=== PATIENT | male | born 1985 | race Caucasian/White ===

== ENCOUNTER 2017-12-04 08:57 | Emergency (ER) | payer SELFPAY ==
[2017-12-04 09:03] VITALS: BP 134/90
--- NOTE | 2017-12-04 09:59 | ER Document Report ---
HPI - HPI Pain Level: 5 Notes: Patient is a 32-year-old male with a history of chronic neck pain presents to the ED complaining of acute on chronic neck pain over the last day. Patient states that he has a stiff neck and soreness associated that does not radiate. Patient denies any strenuous activity or injury recently. He denies any recent illness. Denies any drug allergies or IV drug use. Patient states that he has been evaluated by pain management in the past and has had injections to the area with known bulging disks. He has not established with anybody here. Patient does admit to smoking. Denies any headache, fever, head injury, changes in vision/speech/mentation/hearing, URI, sore throat, chest pain, palpitations, syncope, cough, shortness of breath, wheeze, dyspnea, abdominal pain, nausea/vomiting/diarrhea, urinary retention, dysuria, hematuria, loss of control of bowel or bladder, numbness/tingling, saddle anesthesia, muscle paralysis/weakness, or rash. - ROS Systems Reviewed and Negative: Yes All other systems reviewed and negative Past Medical History - Social History Smoking Status: Current Every Day Smoker Family History: Reviewed & Not Pertinent Vertical Provider Document - CONSTITUTIONAL Agree With Documented VS: Yes Notes: PHYSICAL EXAMINATION: GENERAL: Well-appearing, well-nourished and in no acute distress. Neck: FROM to passive/active. Strength 5+/5. + tenderness to the c- paraspinal mm with mild spasming and trigger points noted. Spurling negative. Kernig/brudzinski neg. N/V intact to UE's b/l. LUNGS: Breath sounds clear to auscultation bilaterally and equal. No wheezes rales or rhonchi. HEART: Regular rate and rhythm without murmurs, rubs, gallops. Musculoskeletal: Ext's b/l: FROM to passive/active. Strength 5+/5. No deficits noted. No bony tenderness of extremities. Back: FROM to passive/active. Strength 5+/5. No vertebral point tenderness, stepoffs, or deformities. No other bony tenderness, erythema, swelling, or ecchymosis. SLR negative b/l. Extremities: No cyanosis, clubbing, or edema b/l. Peripheral pulses 2+. Capillary refill less than 2 seconds. NEUROLOGICAL: Normal speech, normal gait. Normal sensory, motor exams. Reflexes 2+ b/l. Clonus negative. PSYCH: Normal mood, normal affect. SKIN: Warm, Dry, normal turgor, no rashes or lesions noted. - INFECTION CONTROL TRAVEL OUTSIDE OF THE [place] IN LAST 30 DAYS: No Course - Re-evaluation Re-evalutation: 12/04/17 09:57 Patient is an afebrile, well-hydrated, 32-year-old male who presents to the ED with cervicalgia and paraspinal muscle tenderness without evidence of radiculitis. Vitals are acceptable without any significant tachycardia, tachypnea, or hypoxia. PE is otherwise unremarkable for any focal neurological deficits. Patient has reproducible tenderness to his paraspinal muscles of the neck. Patient was issued a soft c-collar for temporary use only. Patient declined any Toradol or Decadron. No labs or imaging warranted at this time based on H&P. Low suspicion for any meningitis, fracture, cauda equina syndrome , epidural mass lesion/abscess, herniated disc causing severe spinal stenosis, or other systemic infection at this time. Patient is aware that his condition can change from initial presentation and that he needs monitor symptoms closely for any acute changes. I will send him home with a prescription for naproxen and baclofen. Conservative measures for symptoms. Recheck with your PCM in 3- 5 days. Consider consult with orthopedics. Return to the ED with any worsening /concerning symptoms otherwise as reviewed in discharge. Patient is in agreement. - Vital Signs Vital signs: Temp Pulse Resp BP Pulse Ox 98.0 F 83 14 134/90 H 100 12/04/17 09:02 12/04/17 09:02 12/04/17 09:02 12/04/17 09:02 12/04/17 09:02 Discharge - Discharge Clinical Impression: Cervicalgia Condition: Stable Disposition: HOME, SELF-CARE Instructions: Neck Injury (Cervical Strain) ([facility]), Soft Cervical Collar ([facility]) Additional Instructions: Rest, Ice Tylenol/ibuprofen as needed Light stretches daily Strength exercises as able Moist heat and massage may help F/u with your PCP in 3-5 days for a recheck Consider consult(s) with Orthopedics/physical therapy for ongoing/worsening symptoms Return to the ED with any worsening symptoms and/or development of fever, headache, chest pain, palpitations, syncope, shortness of breath, trouble breathing, abdominal pain, n/v/d, blood in stool/urine, loss of control of bowel /bladder, urinary retention, muscle weakness/paralysis, saddle anesthesia, numbness/tingling, or other worsening symptoms that are concerning to you. Prescriptions: Baclofen [Baclofen 10 mg Tablet] 5 - 10 mg PO BID PRN #10 tablet PRN Reason: Naproxen 500 mg PO BID PRN #30 tablet PRN Reason: Forms: Elevated Blood Pressure, Smoking Cessation Education Referrals: [facility] [Provider Group] - Follow up as needed
== END 2017-12-04 10:24 | disposition home or self-care (01) ==
LOC: ER 08:57
DX: M54.2 Cervicalgia (principal); M43.6 Torticollis; F17.200 Nicotine dependence, unspecified, uncomplicated
CPT/HCPCS: 99283; L0120